=== PATIENT | male | born 1965 | race Caucasian/White ===

== ENCOUNTER 2023-06-20 15:33 | Emergency (ER) | payer OTHER ==
[2023-06-20] MEDS ORDERED: Ipratropium/Albuterol 3 ML NEB ONE (16:32)
[2023-06-20 17:24] LABS: SARS-CoV-2 NAA Rapid Test Not Detected (NotDetected)
== END 2023-06-20 17:56 | disposition home or self-care (01) ==
LOC: CSHERS 15:33
DX: J10.1 Influenza due to other identified influenza virus with other respiratory manifestations (principal); F17.210 Nicotine dependence, cigarettes, uncomplicated
CPT/HCPCS: 71045; 94640; J7620